=== PATIENT | female | born 1935 | race Caucasian/White ===

== ENCOUNTER 2017-04-21 22:24 | Inpatient (IN) | payer MEDICARE ==
[~2017-04-21] VITALS: Ht 157.5 cm; Wt 64.9 kg
[~2017-04-21 22:24] MED LIST: ADVAI250I INH; ALBU2.5I INH; ALEN70 PO; CALC600T34 PO; CART240C4 PO; FURO20 PO; LORA1TAB PO; METO50TA PO; OXYB5TAB PO; POTA10IN2 PO; PRIN10TA PO; TIOT18I INH; WARF5TAB PO
[2017-04-21 22:29] VITALS: BP 107/53; PULSE 70; RESP 20; O2SAT 96
[2017-04-21] MEDS ORDERED: MORPHINE SULFATE 8 MG/ML INJ ONE (22:32)
[2017-04-21] MEDS ORDERED: SODIUM CHLORIDE 0.9% FLUSH 10 ML FLUSH IVF PRN (22:45)
[2017-04-21] MEDS ORDERED: MORPHINE SULFATE 4 MG/ML INJ IV PUSH ONE (22:45)
--- NOTE | 2017-04-21 23:00 | PD ---
HPI . Altered level of consciousness Chief Complaint: Cardiac Complaint Time Seen by Provider: 22:37 Travel History International Travel<30 days: No Contact w/Intl Traveler<30days: No Traveled to known affect area: No History of Present Illness HPI This patient is brought in via [facility] with the chief complaint of altered level of consciousness. [facility] reports that they were called to the scene of a probable diabetic emergency. On their arrival, they found that the patient had a heart rate of 20 and a blood pressure of 60/30. They treated her with a dose of atropine without effect. They've been initiated transcutaneous pacing. Heart rate and blood pressure as well as mental status had improved. The patient's only complaint is discomfort associated with the transcutaneous pacing. PFSH Past Medical History Asthma: No Atrial Fibrillation: Yes Blood Disorders: No Anxiety: No Depression: No Heart Rhythm Problems: Yes (AFIB) Cancer: Yes (right kidney removed) Cardiovascular Problems: No High Cholesterol: No Chemotherapy: No Chest Pain: No Congestive Heart Failure: Yes COPD: Yes Diabetes: No Diminished Hearing: No Endocrine: No Genitourinary: No Hepatitis: No Hiatal Hernia: No Hypertension: Yes Immune Disorder: No Implanted Vascular Access Dvce: No Musculoskeletal: Yes (OSTEOPENIA) Neurologic: No Psychiatric: No Reproductive: No Respiratory: No Radiation Therapy: No Sleep Apnea: No Thyroid Disease: No ?: Not Menopausal: Yes Past Surgical History Abdominal Surgery: Yes (gallbladder removed) Cholecystectomy: Yes Genitourinary Surgery: Yes (right nephrectomy) Gynecologic Surgery: Yes (VAG HYSTRECTOMY) Pacemaker: No Other Surgery: Yes Social History Alcohol Use: No Tobacco Use: No Substance Use: No Allergies-Medications (Allergen,Severity, Reaction): Coded Allergies: penicillin G (Verified Allergy, Intermediate, hives, 04/21/17) Uncoded Allergies: METAL (Allergy, Severe, RASH , 01/16/11) GOLD, [place], SILVER OTHER METALS Reported Meds & Prescriptions Reported Meds & Active Scripts Active Reported Ventolin Hfa 18 GM Inh (Albuterol Sulfate) 90 Mcg/Act Aer 2 Puff INH Q6H PRN Anoro Ellipta Inh (Umeclidinium/Vilanterol) 62.5-25 Mcg/Act Aero 1 Puff INH DAILY Ditropan (Oxybutynin Chloride) 5 Mg Tab 5 Mg PO HS Atorvastatin (Atorvastatin Calcium) 20 Mg Tab 20 Mg PO HS Warfarin 2.5 Mg Tab 2.5 Mg PO , Warfarin 5 Mg Tab 5 Mg PO FRI, MON, WED, FRI Furosemide 20 Mg Tab 20 Mg PO DAILY Metformin (Metformin HCl) 500 Mg Tab 500 Mg PO DAILY With a meal Metoprolol Tartrate 50 Mg Tab 50 Mg PO BID Diltiazem ER 24 HR 180 Mg Michael Unknown Dose PO DAILY K-Tab (Potassium Chloride) 10 Meq Tab 10 Meq PO DAILY Mirtazapine 15 Mg Tab 15 Mg PO HS Memantine 10 Mg Tab 10 Mg PO DAILY Vitamin D (Cholecalciferol) 2,000 Unit Tab Review of Systems Except as stated in HPI: all other systems reviewed are Neg Musculoskeletal: Positive: Pain (pain associated with transcutaneous pacing) Physical Exam Narrative GENERAL: Patient is awake and alert and does not appear to be in any acute distress. SKIN: warm/dry. HEAD: Normocephalic. Atraumatic. EYES: Pupils equal and round. No scleral icterus. No injection or drainage. ENT: No nasal bleeding or discharge. Mucous membranes pink and moist. NECK: Trachea midline. Full range of motion without pain.. CARDIOVASCULAR: Paced rhythm. Systolic blood pressure is now about 100. Full and equal distal pulses. RESPIRATORY: No accessory muscle use. Clear to auscultation. Breath sounds equal bilaterally. GASTROINTESTINAL: Abdomen soft. Nontender. Bowel sounds present. Nondistended. MUSCULOSKELETAL: No obvious deformities. NEUROLOGICAL: Awake and alert. No obvious cranial nerve deficits. Motor grossly within normal limits. Normal speech. PSYCHIATRIC: Appropriate mood and affect; insight and judgment normal. Data Data Last Documented VS Vital Signs Date Time Temp Pulse Resp B/P (MAP) Pulse Ox O2 Delivery O2 Flow Rate FiO2 04/21/17 23:20 70 20 122/49 (73) 97 Nasal Cannula 3.00 Orders Orders Morphine Inj (Morphine Inj) (04/21/17 22:32) Basic Metabolic Panel (Bmp) (04/21/17 22:42) Ckmb (Isoenzyme) Profile (04/21/17 22:42) Complete Blood Count With Diff (04/21/17 22:42) Magnesium (Mg) (04/21/17 22:42) Prothrombin Time / Inr (Pt) (04/21/17 22:42) Act Partial Throm Time (Ptt) (04/21/17 22:42) Troponin I (04/21/17 22:42) Chest, Single Ap (04/21/17 22:42) Ecg Monitoring (04/21/17 22:42) Iv Access Insert/Monitor (04/21/17 22:42) Oximetry (04/21/17 22:42) Oxygen Administration (04/21/17 22:42) Morphine Inj (Morphine Inj) (04/21/17 22:45) Sodium Chloride 0.9% Flush (Ns Flush) (04/21/17 22:45) ^ Pacemaker (04/21/17 22:42) Sodium Polysty Sulfate Liq (Kayexalate L (04/21/17 23:45) Calcium Gluconate Inj (Calcium Gluconate (04/21/17 23:45) Insulin Human Regular Inj (Novolin R Inj (04/21/17 23:45) Dextrose 10% Inj (D10w Inj) (04/21/17 23:41) Sodium Bicarbonate 8.4% Inj (Sodium Bica (04/21/17 23:45) Morphine Inj (Morphine Inj) (04/22/17 00:00) Admit Order (Ed Use Only) (04/22/17 00:03) Labs Laboratory Tests Test 04/21/17 22:45 White Blood Count 12.9 TH/MM3 Red Blood Count 3.79 MIL/MM3 Hemoglobin 10.0 GM/DL Hematocrit 31.8 % Mean Corpuscular Volume 83.9 FL Mean Corpuscular Hemoglobin 26.3 PG Mean Corpuscular Hemoglobin Concent 31.3 % Red Cell Distribution Width 17.3 % Platelet Count 363 TH/MM3 Mean Platelet Volume 8.3 FL Neutrophils (%) (Auto) 78.0 % Lymphocytes (%) (Auto) 17.3 % Monocytes (%) (Auto) 3.1 % Eosinophils (%) (Auto) 1.1 % Basophils (%) (Auto) 0.5 % Neutrophils # (Auto) 10.1 TH/MM3 Lymphocytes # (Auto) 2.2 TH/MM3 Monocytes # (Auto) 0.4 TH/MM3 Eosinophils # (Auto) 0.1 TH/MM3 Basophils # (Auto) 0.1 TH/MM3 CBC Comment DIFF FINAL Differential Comment Prothrombin Time 31.5 SEC Prothromb Time International Ratio 2.7 RATIO Activated Partial Thromboplast Time 34.4 SEC Blood Urea Nitrogen 20 MG/DL Creatinine 1.63 MG/DL Random Glucose 241 MG/DL Calcium Level 8.9 MG/DL Magnesium Level 1.6 MG/DL Sodium Level 133 MEQ/L Potassium Level 5.7 MEQ/L Chloride Level 103 MEQ/L Carbon Dioxide Level 18.7 MEQ/L Anion Gap 11 MEQ/L Estimat Glomerular Filtration Rate 30 ML/MIN Total Creatine Kinase 20 U/L Troponin I LESS THAN 0.02 NG/ML MDM Medical Decision Making Medical Screen Exam Complete: Yes Emergency Medical Condition: Yes Medical Record Reviewed: Yes (medical history includes COPD, atrial fibrillation, hypertension, hyperlipidemia, diabetes.) Interpretation(s) EKG was not really interpretable. She is currently being paced with a transcutaneous pacemaker. Differential Diagnosis My differential diagnosis includes but is not limited to sick sinus syndrome, adverse reaction to medications Narrative Course This patient presented with symptoms that a bradycardia. Cardiology, Dr. Lopez, was immediately consulted. He recommends discontinuing her beta janusz and calcium channel janusz. The mandate retail service merchandiser, Dr. Scherer, was subsequently consulted. In the meantime, I have ordered morphine for her discomfort associated with pacing. A cardiac workup has been initiated. The patient is currently hemodynamically stable. CBC Diagram 04/21/17 22:45 BMP Diagram 04/21/17 22:45 Calcium Level 8.9, Magnesium Level 1.6 I have ordered IV insulin and dextrose, Kayexalate, sodium bicarbonate and calcium gluconate for her hyperkalemia. Troponin is less than 0.02. INR is 2.7. Critical Care Narrative Aggregate critical care time was 45 minutes. Time to perform other separately billable procedures was not included in the critical care time. My time did not include minutes spent treating any other patients simultaneously or on activities that did not directly contribute to the patient's treatment. The services I provided to this patient were to treat and/or prevent clinically significant deterioration due to symptomatic bradycardia I provided critical care services requiring my management, as noted below: Chart data review, documentation time, medication orders and management, vital sign assessments/reviewing monitor data, ordering and reviewing lab tests, ordering and interpreting/reviewing x-rays and diagnostic studies, care of the patient and discussion of the patient with the admitting physicians Diagnosis Primary Impression: Symptomatic bradycardia Additional Impression: Hyperkalemia Admitting Information Admitting Physician Requests: Admit Condition: Keila Tilley MD Apr 21, 2017 22:59
[2017-04-21 23:19] LABS: AUTOMATED NEUTROPHIL # 10.1 TH/MM3 (1.8-7.7); BASOPHIL # 0.1 TH/MM3 (0-0.2); BASOPHIL % 0.5 % (0.0-2.0); EOSINOPHIL # 0.1 TH/MM3 (0-0.4); EOSINOPHIL % 1.1 % (0.0-4.0); HEMATOCRIT 31.8 % (35.0-46.0); HEMO FLAGS DIFF FINAL; LYMPH % 17.3 % (9.0-44.0); LYMPHOCYTE # 2.2 TH/MM3 (1.0-4.8); MEAN CELL VOLUME 83.9 FL (80.0-100.0); MEAN CORPUSCULAR HEMOGLOBIN 26.3 PG (27.0-34.0); MEAN CORPUSCULAR HGB CONC 31.3 % (32.0-36.0); MONO % 3.1 % (0.0-8.0); PLATELET COUNT 363 TH/MM3 (150-450); RED BLOOD COUNT 3.79 MIL/MM3 (4.00-5.30); RED CELL DISTRIBUTION WIDTH 17.3 % (11.6-17.2); WHITE BLOOD COUNT 12.9 TH/MM3 (4.0-11.0)
[2017-04-21 23:20] VITALS: BP 122/49; PULSE 70; RESP 20; O2SAT 97
[2017-04-21 23:36] LABS: ANION GAP 11 MEQ/L (5-15); BICARBONATE 18.7 MEQ/L (21.0-32.0); BLOOD UREA NITROGEN 20 MG/DL (7-18); CHLORIDE 103 MEQ/L (98-107); GLOMERULAR FILTRATION RATE 30 ML/MIN (>89); MAGNESIUM 1.6 MG/DL (1.5-2.5); POTASSIUM 5.7 MEQ/L (3.5-5.1); SODIUM (NA) 133 MEQ/L (136-145)
--- NOTE | 2017-04-21 23:37 | RADRPT ---
EXAM DATE/TIME: 04/21/2017 23:02 [facility] COMPARISON: No previous studies available for comparison. INDICATIONS : Chest pain. MEDICAL HISTORY : Congestive heart failure. Hypertension Chronic obstructive pulmonary disease. SURGICAL HISTORY : None. ENCOUNTER: Initial ACUITY: 1 day PAIN SCORE: 10/10 LOCATION: Left chest FINDINGS: A single view of the chest demonstrates basilar and dependent atelectasis in the lungs. No effusion. No pneumothorax. Heart size enlarged. Atherosclerotic aorta. CONCLUSION: 1. Basilar and dependent atelectasis in the lungs. No effusion or pneumothorax. Lauro Krishna MD on April 21, 2017 at 23:35 Board Certified Radiologist. This report was verified electronically.
[2017-04-21 23:41] LABS: APTT (PATIENT) 34.4 SEC (24.3-30.1); CREATINE KINASE 20 U/L (26-192); INTERNATIONAL NORMALIZED RATIO 2.7 RATIO; PROTHROMBIN TIME - PATIENT 31.5 SEC (9.8-11.6)
[2017-04-21] MEDS ORDERED: DEXTROSE 10% IV STA (23:41)
[2017-04-21] MEDS ORDERED: INSULIN HUMAN REGULAR 1,000 UNITS/10 ML VIAL IV PUSH ONE (23:45)
[2017-04-21] MEDS ORDERED: SODIUM BICARBONATE 8.4% INJ 50 MEQ/50 ML SYR IV PUSH ONE (23:45)
[2017-04-21] MEDS ORDERED: SODIUM POLYSTYRENE SULFONATE SUSP 15 GM/60 ML CUP PO ONE (23:45)
[2017-04-21] MEDS ORDERED: CALCIUM GLUCONATE 10% 1 GM/10 ML VIAL IV PUSH ONE (23:45)
[2017-04-21] MEDS ORDERED: VITA20003 (23:48)
[2017-04-21] MEDS ORDERED: METF500T PO (23:48)
[2017-04-21] MEDS ORDERED: DILT0.05 PO (23:48)
[2017-04-21] MEDS ORDERED: METO50TA PO (23:48)
[2017-04-21] MEDS ORDERED: K-TA10TA PO (23:48)
[2017-04-21] MEDS ORDERED: WARF-23 PO (23:48)
[2017-04-21] MEDS ORDERED: FURO20TA PO (23:48)
[2017-04-21] MEDS ORDERED: MEMA1TAB2 PO (23:48)
[2017-04-21] MEDS ORDERED: MIRTA15 PO (23:48)
[2017-04-21] MEDS ORDERED: WARF-18 PO (23:51)
[2017-04-21] MEDS ORDERED: VENTAER INH (23:51)
[2017-04-21] MEDS ORDERED: OXYB5TAB10 PO (23:51)
[2017-04-21] MEDS ORDERED: UMEC1AER INH (23:51)
[2017-04-21] MEDS ORDERED: ATOR20TA15 PO (23:51)
[2017-04-22] VITALS (24 sets, daily range): BP systolic 110–170; BP diastolic 54–112; PULSE 50–87; RESP 16–26; TEMP 97.2–98.7; O2SAT 76–99
[2017-04-22] MEDS: MORPHINE SULFATE 4 MG/ML INJ IV PUSH ONE ×2 (00:13)
[2017-04-22] MEDS ORDERED: DOPamine INJ PREMIX 500 ML ONE (00:39)
[2017-04-22] MEDS ORDERED: TERBUTALINE INJ 1 MG/ML AMP SQ PRN (00:45)
[2017-04-22] MEDS ORDERED: SODIUM BICARBONATE 8.4% SOLN 50 MEQ/50 ML VIAL IV PUSH ONE (00:45)
[2017-04-22] MEDS ORDERED: DOPamine INJ PREMIX 500 ML IV PRN ×2 (00:45→06:15)
[2017-04-22] MEDS ORDERED: SODIUM CHLORIDE 0.9% FLUSH 10 ML FLUSH IV FLUSH PRN (01:15)
[2017-04-22] MEDS ORDERED: SENNOSIDES 8.6 MG TAB PO PRN (01:15)
[2017-04-22] MEDS ORDERED: CHLORHEXIDINE GLUCONATE 2 % 1 PACK (2 CLOTHS) TOP PRN (01:15)
[2017-04-22] MEDS ORDERED: ACETAMINOPHEN 325 MG TAB PO PRN (01:15)
[2017-04-22] MEDS ORDERED: ONDANSETRON HCL 4 MG/2 ML VIAL IV PUSH PRN (01:15)
[2017-04-22] MEDS ORDERED: RESP: ALBUTEROL 2.5 MG/3 ML NEB (PRN) INH (01:15)
[2017-04-22] MEDS ORDERED: BISACODYL 10 MG SUPP RECTAL PRN (01:15)
[2017-04-22] MEDS ORDERED: LACTULOSE SYRUP 20 GM/30 ML CUP PO PRN (01:15)
[2017-04-22] MEDS ORDERED: MAGNESIUM HYDROXIDE SUSP 30 ML CUP PO PRN (01:15)
[2017-04-22] MEDS ORDERED: MISCELLANEOUS NURSING INFORMATION XX SCH (01:15)
--- NOTE | 2017-04-22 01:23 | HHI.HP ---
HPI Service Critical Care Medicine Primary Care Physician Unknown Admission Diagnosis symptomatic bradycardia, hyperkalemia Diagnosis: (1) COPD (chronic obstructive pulmonary disease) Diagnosis: Secondary (2) Atrial fibrillation Diagnosis: Secondary (3) Coagulopathy Diagnosis: Secondary (4) Hyperlipemia Diagnosis: Secondary (5) Hypertension, benign Diagnosis: Secondary (6) Diabetes mellitus type 2, diet-controlled Diagnosis: Secondary (7) Hyperkalemia Diagnosis: Secondary (8) Symptomatic bradycardia Diagnosis: Principal (9) Type 2 diabetes mellitus Diagnosis: Secondary Travel History International Travel<30 Days: No Contact w/Intl Traveler <30 Da: No Traveled to Known Affected Are: No History of Present Illness 81-year-old female with past medical history of hypertension, hyperlipidemia, chronic diastolic heart failure, atrial fibrillation on chronic anticoagulation with warfarin, depression, dementia, diabetes, COPD (not requiring home oxygen) who presents to [facility] emergency department after her daughter returned home from work and found her with nausea , vomiting, clammy skin, lightheadedness, feeling weak and unable to ambulate. She had also experience some shortness of breath earlier today and had been using her inhaler. No chest pain or headache. [facility] was called and when they arrived her heart rate was in the 20s with blood pressure 60/20. She was given atropine without improvement and then transcutaneous pacing was initiated. After initiation of transcutaneous pacing her blood pressure immediately improved and has been 107/53-122/49. EKG with junctional rhythm. She was given Ativan 4 mg IV per E VAC to help her to tolerate transcutaneous pacing. She was given morphine 2 mg IV in the emergency department. Dr. Lowe discussed with Dr. Lopez cardiology who recommended admission by [facility] with cardiology consultation. Patient is on metoprolol 50 mg by mouth twice a day and Cardizem 180 mg by mouth daily which she took at 11 AM on 04/21. She reportedly has no prior history of bradycardia. ED workup included potassium of 5.7, bicarbonate 18.7, BUN 20 with creatinine of 1.63. Glucose is 241. She has a history of diabetes and is on metformin. Review of Systems Constitutional: DENIES: Fever Respiratory: DENIES: Cough Cardiovascular: DENIES: Chest pain Gastrointestinal: COMPLAINS OF: Nausea Musculoskeletal: DENIES: Neck pain Integumentary: DENIES: Rash Hematologic/lymphatic: DENIES: Bruising Neurologic: DENIES: Headache Psychiatric: COMPLAINS OF: Depression Past Family Social History Allergies: Coded Allergies: penicillin G (Verified Allergy, Intermediate, hives, 04/21/17) Uncoded Allergies: METAL (Allergy, Severe, RASH , 01/16/11) GOLD, [place], SILVER OTHER METALS Past Medical History Hypertension Hyperlipidemia Diabetes mellitus Atrial fibrillation on chronic anticoagulation with warfarin Chronic diastolic heart failure COPD Depression Past Surgical History 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 Cholecystectomy Left hip replacement Hysterectomy Recent MOHS surgery ~ 2 weeks ago for removal of skin cancer right lima Reported Medications Anoro Ellipta 1 puff inhaled daily Albuterol 2 puffs inhaled every 6 hours as needed for shortness of breath Warfarin 5 mg by mouth Friday/Friday/Friday/Friday Warfarin 2.5 mg Friday/ Atorvastatin 20 mg by mouth daily at bedtime Metoprolol 50 g by mouth twice a day Cardizem ER 180 mg by mouth daily Mirtazapine 15 mg by mouth daily Amantadine 10 mg by mouth daily Potassium chloride 10 mEq by mouth daily Lasix 20 mg by mouth daily Ditropan 5 mg by mouth daily at bedtime Vitamin D 2000 units by mouth daily Family History Denies family cardiac history Social History [id number] history of smoking.. Quit smoking at age 56 No alcohol use No illicit drug use is She has 6 children. Lives with her daughter who presented with her in the emergency department. She had another daughter who recently. She was previously raising a granddaughter but she lost custody to one of her daughters. Physical Exam Vital Signs Vital Signs Date Time Temp Pulse Resp B/P (MAP) Pulse Ox O2 Delivery O2 Flow Rate FiO2 04/22/17 00:49 50 116/58 04/22/17 00:32 50 18 110/54 (72) 98 Nasal Cannula 3.00 04/21/17 23:20 70 20 122/49 (73) 97 Nasal Cannula 3.00 04/21/17 22:47 97 Nasal Cannula 4.00 04/21/17 22:40 70 04/21/17 22:29 70 20 107/53 (71) 96 Physical Exam GENERAL: Well-nourished, well-developed patient who is laying in the ED gurney. SKIN: Warm and dry, adequately perfused. No diaphoresis. Healing incision right anterior lima from recent Mohs surgery, no drainage. HEAD: Atraumatic. Normocephalic. EYES: Pupils equal and round, 3 mm and reactive bilaterally. No scleral icterus. No injection or drainage. ENT: No nasal bleeding or discharge. Mucous membranes pink and moist. NECK: Trachea midline. No JVD. CARDIOVASCULAR: Transcutaneous pacing ongoing with 50mA , changed to demand pacing at backup rate 50. Patient's intrinsic rate was in the high 30s to low 40s. No murmurs rubs or gallops appreciated. RESPIRATORY: Breathing comfortably on nasal cannula. Rhonchi in left lung field. No wheezes Rales. GASTROINTESTINAL: Abdomen soft, non-tender, nondistended. Bowel sounds present. MUSCULOSKELETAL: Extremities without clubbing, cyanosis, or edema. No obvious deformities. NEUROLOGICAL: Awakens and answers questions but sometimes tangential and slightly slurred speech which daughter states occurred after she received morphine. No facial droop. Strength 5/5 in all extremities with no focal deficit. Laboratory Laboratory Tests Test 04/21/17 22:45 White Blood Count 12.9 Red Blood Count 3.79 Hemoglobin 10.0 Hematocrit 31.8 Mean Corpuscular Volume 83.9 Mean Corpuscular Hemoglobin 26.3 Mean Corpuscular Hemoglobin Concent 31.3 Red Cell Distribution Width 17.3 Platelet Count 363 Mean Platelet Volume 8.3 Neutrophils (%) (Auto) 78.0 Lymphocytes (%) (Auto) 17.3 Monocytes (%) (Auto) 3.1 Eosinophils (%) (Auto) 1.1 Basophils (%) (Auto) 0.5 Neutrophils # (Auto) 10.1 Lymphocytes # (Auto) 2.2 Monocytes # (Auto) 0.4 Eosinophils # (Auto) 0.1 Basophils # (Auto) 0.1 CBC Comment DIFF FINAL Differential Comment Prothrombin Time 31.5 Prothromb Time International Ratio 2.7 Activated Partial Thromboplast Time 34.4 Blood Urea Nitrogen 20 Creatinine 1.63 Random Glucose 241 Calcium Level 8.9 Magnesium Level 1.6 Sodium Level 133 Potassium Level 5.7 Chloride Level 103 Carbon Dioxide Level 18.7 Anion Gap 11 Estimat Glomerular Filtration Rate 30 Total Creatine Kinase 20 Troponin I LESS THAN 0.02 Result Diagram: 04/21/17224404/21/172244 Caprini VTE Risk Assessment Caprini VTE Risk Assessment: Mod/High Risk (score >= 2) VTE Pharm Contraindication: Coagulopathy,INR elevated Caprini Risk Assessment Model Point Value = 1 Point Value = 2 Point Value = 3 Point Value = 5 Age 41-60 Minor surgery BMI > 25 kg/m2 Swollen legs Varicose veins or History of unexplained or recurrent spontaneous Oral contraceptives or hormone replacement Sepsis (< 1 month) Serious lung disease, including pneumonia (< 1 month) Abnormal pulmonary function Acute myocardial infarction Congestive heart failure (< 1 month) History of inflammatory bowel disease Medical patient at bed rest Age 61-74 Arthroscopic surgery Major open surgery (> 45 min) Laparoscopic surgery (> 45 min) Malignancy Confined to bed (> 72 hours) Immobilizing plaster cast Central venous access Age >= 75 History of VTE Family history of VTE Factor V Leiden Prothrombin [id number] Lupus anticoagulant Anticardiolipin antibodies Elevated serum homocysteine Heparin-induced thrombocytopenia Other congenital or acquired thrombophilia Stroke (< 1 month) Elective arthroplasty Hip, pelvis, or leg fracture Acute spinal cord injury (< 1 month) Prophylaxis Regimen Total Risk Factor Score Risk Level Prophylaxis Regimen 0-1 Low Early ambulation 2 Moderate Order ONE of the following: *Sequential Compression Device (SCD) *Heparin 5000 units SQ BID 3-4 Higher Order ONE of the following medications: *Heparin 5000 units SQ TID *Enoxaparin/Lovenox 40 mg SQ daily (WT < 150 kg, CrCl > 30 mL/min) *Enoxaparin/Lovenox 30 mg SQ daily (WT < 150 kg, CrCl > 10-29 mL/min) *Enoxaparin/Lovenox 30 mg SQ BID (WT < 150 kg, CrCl > 30 mL/min) AND/OR *Sequential Compression Device (SCD) 5 or more Highest Order ONE of the following medications: *Heparin 5000 units SQ TID (Preferred with Epidurals) *Enoxaparin/Lovenox 40 mg SQ daily (WT < 150 kg, CrCl > 30 mL/min) *Enoxaparin/Lovenox 30 mg SQ daily (WT < 150 kg, CrCl > 10-29 mL/min) *Enoxaparin/Lovenox 30 mg SQ BID (WT < 150 kg, CrCl > 30 mL/min) AND *Sequential Compression Device (SCD) Assessment and Plan Problem List: (1) Type 2 diabetes mellitus ICD Code: E11.9 - Type 2 diabetes mellitus without complications Status: Chronic (2) Atrial fibrillation ICD Code: I48.91 - Atrial fibrillation Status: Chronic (3) COPD (chronic obstructive pulmonary disease) ICD Code: J44.9 - COPD (chronic obstructive pulmonary disease) Status: Chronic (4) Coagulopathy ICD Code: D68.9 - Coagulopathy Status: Chronic (5) Hyperlipemia ICD Code: E78.5 - Hyperlipemia Status: Chronic (6) Hypertension, benign ICD Code: I10 - Hypertension, benign Status: Chronic (7) Hyperkalemia ICD Code: E87.5 - Hyperkalemia Status: Acute (8) Symptomatic bradycardia ICD Code: R00.1 - Bradycardia, unspecified Status: Acute (9) Dementia ICD Code: F03.90 - Unspecified dementia without behavioral disturbance Status: Chronic (10) ALTON (acute kidney injury) ICD Code: N17.9 - Acute kidney failure, unspecified Status: Acute (11) Anemia ICD Code: D64.9 - Anemia, unspecified Status: Chronic (12) History of tobacco abuse ICD Code: Z87.891 - Personal history of nicotine dependence Status: Resolved Assessment and Plan NEURO: Dementia Continue memantine 10 mg by mouth daily Received Ativan 4 mg IV and morphine 2 mg IV in the emergency department. Is sedated with that and will need to avoid further sedatives, so will try to transition off transcutaneous pacing to minimize sedative need. RESP: COPD Former history of tobacco abuse DuoNeb every 6 hours. Albuterol every 2 hours as needed. CV: Cardiogenic shock secondary to bradycardia, resolved Symptomatic bradycardia History of atrial fibrillation on chronic anticoagulation Hypertension Hyperlipidemia Received atropine per [facility]. Was transcutaneous paced in the emergency department. She is getting sleepy with sedative medications and when they wear off will not tolerate transcutaneous pacing anymore. Intrinsic rate is 30s to 40s. Discussed this with her daughter. Started dopamine and she responded to 5 mcg/kg/min and was able to discontinue transcutaneous pacing. At this point will avoid transvenous pacer. Will hold metoprolol and Cardizem. If she develops A. fib RVR she may require permanent pacemaker placement to allow for AV krupa blockade, but will just need to monitor and see what happens. We'll consult cardiology, she is known to Dr. Lopez. Lasix 20 mg by mouth daily Continue statin daily Echo 11/16/14 - Ejection fraction 55-60%. Normal wall motion. No regional wall motion abnormality. GI: Nothing by mouth for now. Swallow eval in a.m if she is not needing any procedures. FEN/RENAL: Acute kidney injury Hyperkalemia Hyponatremia She was administered by bicarbonate 25 mEq IV in the ED. Will give an additional 25 mEq IV. Received Kayexalate 15 mg by mouth, calcium gluconate 1 g IV, insulin 10 units IV. We'll repeat potassium. Will check magnesium level Hold home potassium. ID: Leukocytosis Likely stress reaction secondary to recent surgery/bradycardia. We'll monitor for signs and symptoms of infection. She is afebrile. HEME: Chronic Anemia Chronic anti-coagulation with warfarin Monitor CBC. INR therapeutic at 2.7. Hold warfarin for now in the event that she needs pacemaker placement. Resume warfarin or initiate lovenox if INR <2, depending on plan for pacemaker placement/clinical course. ENDO: Diabetes mellitus with acute hyperglycemia Check TSH. . PROPH: She is chronically anticoagulated with warfarin for A fib and INR is therapeutic to prevent DVTs. Protonix 40 mg IV daily for stress ulcer prophylaxis ACCESS: She has a peripheral IV. She appears to be coming down on dopamine quickly. If she remains on dopamine will place central line however does not appear necessary at this time and would like to avoid unnecessary invasive procedure in the event that she may need PPM. Patient's daughter updated at bedside in detail. Discussed with Dr. Black in the morning. Critical care time 60 minutes exclusive of separately billable procedures. Problem Qualifiers (1) Atrial fibrillation: Qualified Codes: I48.0 - Paroxysmal atrial fibrillation Caroline Scherer MD Apr 22, 2017 01:23
[2017-04-22] MEDS: CHLORHEXIDINE GLUCONATE 2 % 1 PACK (2 CLOTHS) TOP SCH (04:00)
[2017-04-22] MEDS ORDERED: GLUCAGON 1 MG/ML VIAL OTHER PRN (06:15)
[2017-04-22] MEDS ORDERED: DEXTROSE 50% IN WATER 50 ML VIAL(D50) IV PRN (06:15)
[2017-04-22] MEDS: INSULIN ASPART SUPPLEMENTAL SCALE SQ SCH ×4 (07:00→21:00)
--- NOTE | 2017-04-22 07:24 | RADRPT ---
EXAM DATE/TIME: 04/22/2017 07:00 [facility] COMPARISON: CHEST SINGLE AP, April 21, 2017, 23:02. INDICATIONS : Pulmonary Disease. MEDICAL HISTORY : Chronic obstructive pulmonary disease. Congestive heart failure. Hypertension. SURGICAL HISTORY : None. ENCOUNTER: Initial ACUITY: 2 days PAIN SCORE: 0/10 LOCATION: Bilateral chest FINDINGS: Mild diffuse interstitial prominence with normal bibasilar airspace disease similar to prior exam. Ca rdiac silhouette is enlarged. Central pulmonary vascularity is minimally indistinct. Remainder of the exam is unchanged. CONCLUSION: 1. Cardiomegaly with slight positive fluid balance. 2. Stable trace bibasilar airspace disease, likely atelectasis. 3. No significant interval change. Alin Morin MD on April 22, 2017 at 7:22 Board Certified Radiologist. This report was verified electronically.
--- NOTE | 2017-04-22 08:32 | HHI.CCPN ---
Subjective Remarks/Hospital Course 81-year-old female with past medical history of hypertension, hyperlipidemia, chronic diastolic heart failure, atrial fibrillation on chronic anticoagulation with warfarin, depression, dementia, diabetes, COPD (not requiring home oxygen) who presents to [facility] emergency department after her daughter returned home from work and found her with nausea , vomiting, clammy skin, lightheadedness, feeling weak and unable to ambulate. She had also experience some shortness of breath earlier today and had been using her inhaler. No chest pain or headache. [facility] was called and when they arrived her heart rate was in the 20s with blood pressure 60/20. She was given atropine without improvement and then transcutaneous pacing was initiated. After initiation of transcutaneous pacing her blood pressure immediately improved and has been 107/53-122/49. She was given Ativan 4 mg IV per E VAC to help her to tolerate transcutaneous pacing. She was given morphine 2 mg IV in the emergency department. Dr. Lowe discussed with Dr. Lopez cardiology who recommended admission by [facility] with cardiology consultation. Patient is on metoprolol 50 mg by mouth twice a day and Cardizem 180 mg by mouth daily which she took at 11 AM on 04/21. She reportedly has no prior history of bradycardia. ED workup included potassium of 5.7, bicarbonate 18.7, BUN 20 with creatinine of 1.63. Glucose is 241. She has a history of diabetes and is on metformin. Subjective: 04/22: Dopamine was discontinued at 0615 this a.m., the patient remains with a heart rate in the 60s to 70s currently, normotensive. Seen by cardiology Dr. Lopez, continue to closely monitor, no interventions recommended at this time. The patient remains alert and oriented denies chest pain. The patient was noted to have hypomagnesemia magnesium will be replaced this morning. Objective Vital Signs Date Time Temp Pulse Resp B/P (MAP) Pulse Ox O2 Delivery O2 Flow Rate FiO2 04/22/17 06:00 97.2 71 17 147/60 (89) 90 04/22/17 03:30 Venturi Mask 6.00 Intake and Output 04/22/17 04/22/17 04/23/17 08:00 16:00 00:00 Intake Total 0 ml Output Total 350 ml Balance -350 ml Result Diagram: 9/11/17 2245 9/11/17 2245 Imaging Last Impressions Chest X-Ray 04/22/17 0000 Signed Impressions: Service Date/Time: Saturday, April 22, 2017 07:00 - CONCLUSION: 1. Cardiomegaly with slight positive fluid balance. 2. Stable trace bibasilar airspace disease, likely atelectasis. 3. No significant interval change. Alin Morin MD Objective Remarks GENERAL: Well-developed well-nourished female of appropriately stated age, pleasantly conversant in no apparent respiratory distress SKIN: Warm and dry. HEAD: Atraumatic. Normocephalic. EYES: Pupils equal and round. No scleral icterus. No injection or drainage. ENT: No nasal bleeding or discharge. Mucous membranes pink and moist. NECK: Trachea midline. No JVD. CARDIOVASCULAR: Normal rate, regular rhythm. Transcutaneous pacer in place. HR 60-70's RESPIRATORY: No accessory muscle use. Clear to auscultation. Breath sounds equal bilaterally. GASTROINTESTINAL: Abdomen soft, non-tender, nondistended. No guarding. MUSCULOSKELETAL: Extremities without clubbing, cyanosis, or edema. No obvious deformities. NEUROLOGICAL: Awake and alert. RASS 0. No gross focal/sensory deficits. Cranial nerves II-XII grossly intact. Follows commands in all 4 extremities. Motor strength 5/5 bilateral upper and lower extremities A/P Assessment and Plan NEURO: Dementia Insomnia Neurochecks per ICU protocol Tylenol 650 mg every 6 for pain Continue [id number] daily at bedtime patient's home med Continue [id number] /d RESP: COPD Former history of tobacco abuse 04/22-chest z-nnw-[id number], trace bibasilar airspace disease Contain O2 sat greater than 92%, patient currently on Ventimask at 35% wean to nasal cannula CV: Cardiogenic shock secondary to bradycardia, resolved Symptomatic bradycardia History of atrial fibrillation on chronic anticoagulation Hypertension Hyperlipidemia 04/21-patient status post treatment with atropine followed by transcutaneous pacing followed by dopamine infusion. Breathing has been weaned off since 04/22, heart rate 60 to 70s Normotensive. Will continue to monitor Maintain transcutaneous pacer placement Cardiology following-Dr. Lopez GI: Hyperlipidemia Begin heart healthy diet Continue atorvastatin Bowel regimen FEN/RENAL: Acute kidney injury Hyperkalemia Hypomagnesemia Hyponatremia Monitor and replete Electrolytes per ICU protocol. Continue monitor sodium Magnesium 2 g IV Continue patient's home med Lasix 20 mg/day ID: Leukocytosis WBC 12 ,continue to monitor trend HEME: INR 2.7-patient anticoagulated for atrial fibrillation Monitor INR, CBC ENDO: Diabetes mellitus with acute hyperglycemia F/U TSH. . PROPH: She is chronically anticoagulated with warfarin and INR is therapeutic to prevent DVTs. Apply SCDs ACCESS: Peripheral IVs providing adequate access at this time. Central line if indicated Dispo: Discussed with PHOSPHATIC FERTILIZER SUPERVISOR at bedside. Level 3 Physician Hanna Paredes MD Apr 22, 2017 08:32
[2017-04-22] MEDS: FUROSEMIDE 20 MG TAB PO SCH (08:58)
[2017-04-22] MEDS: PANTOPRAZOLE SODIUM 40 MG VIAL IV PUSH SCH (08:58)
[2017-04-22] MEDS: DOCUSATE SODIUM 50 MG/SENNA 8.6 MG TAB PO SCH ×2 (08:58→21:02)
[2017-04-22] MEDS: MEMANTINE HCL 10 MG TAB PO SCH (08:58)
[2017-04-22] MEDS: MAGNESIUM SULFATE 1 GM PREMIX 100 ML IV SCH ×2 (08:59→10:45)
[2017-04-22] MEDS: SODIUM CHLORIDE 0.9% FLUSH 10 ML FLUSH IV FLUSH SCH ×2 (08:59→21:00)
[2017-04-22] MEDS ORDERED: RESP: ALBUTEROL 2.5 MG/3 ML NEB (PRN) NEB (09:45)
[2017-04-22] MEDS: RESP: ALBUTEROL 2.5 MG/IPRATROPIUM 0.5 MG NEB (SCH) NEB ×3 (10:16→20:46)
--- NOTE | 2017-04-22 16:41 | ECHRPT ---
Indication: SHORTNESS OF BREATH CONCLUSIONS Normal left ventricular size and wall thickness. The left ventricular systolic function is normal wi th an estimated ejection fraction in the range of 60-65%. Left ventricular diastolic function parameters a re normal. No wall motiona abnormalities. The left atrial size is bvac-ld-byfxopkrka dilated. The right atrial size is ugzk-vk-eadfxctlzy dilated. Lyqrf-dm-azyz mitral valve regurgitation. Mild thickening of the aortic valve leaflets. There is mild tricuspid valve regurgitation. The estimated pulmonary arterial pressure is 42 mmHg. BP: 147 / 60 HR: 71 Rhythm: Sinus MEASUREMENTS (Male / Female) Normal Values Technical Quality:Good 2D ECHO LV Diastolic Diameter PLAX 3.5 cm 4.2 - 5.9 / 3.9 - 5.3 cm LV Systolic Diameter PLAX 2.6 cm IVS Diastolic Thickness 1.2 cm 0.6 - 1.0 / 0.6 - 0.9 cm LVPW Diastolic Thickness 1.2 cm 0.6 - 1.0 / 0.6 - 0.9 cm LV Relative Wall Thickness 0.7 RV Internal Dim ED PLAX 2.4 cm LVOT Diameter 1.9 cm LA Systolic Diameter LX 3.9 cm 3.0 - 4.0 / 2.7 - 3.8 cm LV Ejection Fraction MOD 4C 51.7 % LV Cardiac Index MOD 4C 619.5 cm/minm LV Ejection Fraction 4C AL 54.1 % LV Cardiac Index 4C AL 676.5 cm/minm M-MODE Aortic Root Diameter MM 2.4 cm LA Systolic Diameter MM 4.0 cm LA Ao Ratio MM 1.7 AV Cusp Separation MM 1.3 cm DOPPLER AV Peak Velocity 144.0 cm/s AV Peak Gradient 8.3 mmHg LVOT Peak Velocity 73.1 cm/s LVOT Peak Gradient 2.1 mmHg AV Area Cont Eq pk 1.4 cm MV Area PHT 3.9 cm LV E' Lateral Velocity 5.9 cm/s LV E' Septal Velocity 5.0 cm/s TR Peak Velocity 282.0 cm/s TR Peak Gradient 31.8 mmHg FINDINGS LEFT VENTRICLE Normal left ventricular size and wall thickness. The left ventricular systolic function is normal wi th an estimated ejection fraction in the range of 60-65%. Left ventricular diastolic function parameters a re normal. No wall motiona abnormalities. RIGHT VENTRICLE Normal right ventricular size and systolic function. LEFT ATRIUM The left atrial size is radr-fd-vfkpiydazg dilated. RIGHT ATRIUM The right atrial size is iexd-hx-olzcmxkayj dilated. ATRIAL SEPTUM Normal atrial septal thickness without atrial level shunting by limited color doppler interrogation. AORTA The aortic root and proximal ascending aorta are normal in size on limited imaging. MITRAL VALVE Veete-io-oxny mitral valve regurgitation. AORTIC VALVE Mild thickening of the aortic valve leaflets. TRICUSPID VALVE There is mild tricuspid valve regurgitation. The estimated pulmonary arterial pressure is 42 mmHg. PULMONARY VALVE The pulmonary valve is not well visualized. VESSELS The inferior vena cava is normal in size. PERICARDIUM No pericardial effusion. Toño Mejia MD (Electronically Signed) Final Date:22 April 2017 16:40
[2017-04-22] MEDS: OXYBUTYNIN CHLORIDE 5 MG TAB PO SCH (21:02)
[2017-04-22] MEDS: ATORVASTATIN 20 MG TAB PO SCH (21:02)
[2017-04-22] MEDS: MIRTAZAPINE 15 MG TAB PO SCH (21:02)
[2017-04-23] VITALS (14 sets, daily range): BP systolic 141–186; BP diastolic 62–96; PULSE 73–111; RESP 18–29; TEMP 98.2–98.7; O2SAT 92–99
[2017-04-23] MEDS: RESP: ALBUTEROL 2.5 MG/IPRATROPIUM 0.5 MG NEB (SCH) NEB ×4 (04:00→20:24)
[2017-04-23] MEDS: CHLORHEXIDINE GLUCONATE 2 % 1 PACK (2 CLOTHS) TOP SCH (04:00)
[2017-04-23 05:13] LABS: AUTOMATED NEUTROPHIL # 8.8 TH/MM3 (1.8-7.7); BASOPHIL % 0.3 % (0.0-2.0); EOSINOPHIL # 0.2 TH/MM3 (0-0.4); EOSINOPHIL % 2.2 % (0.0-4.0); HEMO FLAGS DIFF FINAL; LYMPH % 16.3 % (9.0-44.0); LYMPHOCYTE # 1.9 TH/MM3 (1.0-4.8); MEAN CELL VOLUME 81.4 FL (80.0-100.0); MEAN CORPUSCULAR HEMOGLOBIN 25.7 PG (27.0-34.0); MEAN CORPUSCULAR HGB CONC 31.6 % (32.0-36.0); MONO % 4.6 % (0.0-8.0); NEUT % 76.6 % (16.0-70.0); PLATELET COUNT 339 TH/MM3 (150-450); RED BLOOD COUNT 3.69 MIL/MM3 (4.00-5.30); RED CELL DISTRIBUTION WIDTH 16.9 % (11.6-17.2); WHITE BLOOD COUNT 11.4 TH/MM3 (4.0-11.0)
[2017-04-23 06:04] LABS: ALKALINE PHOSPHATASE 107 U/L (45-117); ALT (GPT) 28 U/L (10-53); ANION GAP 7 MEQ/L (5-15); AST (GOT) 22 U/L (15-37); BICARBONATE 27.5 MEQ/L (21.0-32.0); BLOOD UREA NITROGEN 20 MG/DL (7-18); CHLORIDE 103 MEQ/L (98-107); GLOMERULAR FILTRATION RATE 57 ML/MIN (>89); MAGNESIUM 1.9 MG/DL (1.5-2.5); POTASSIUM 4.5 MEQ/L (3.5-5.1); SODIUM (NA) 137 MEQ/L (136-145); TOTAL BILIRUBIN ADULT 0.3 MG/DL (0.2-1.0)
--- NOTE | 2017-04-23 06:24 | RADRPT ---
EXAM DATE/TIME: 04/23/2017 05:06 [place] COMPARISON: CHEST SINGLE AP, April 22, 2017, 7:00. INDICATIONS : Short of breath. MEDICAL HISTORY : Chronic obstructive pulmonary disease. Congestive heart failure. SURGICAL HISTORY : None. ENCOUNTER: Subsequent ACUITY: 1 week PAIN SCORE: 0/10 LOCATION: Bilateral chest FINDINGS: A single view of the chest demonstrates cardiomegaly. Mild basilar opacity most characteristic of ate lectasis. No significant effusion. No pneumothorax. CONCLUSION: 1. Mild basilar opacity similar to April 22. Cardiomegaly. No pneumothorax. Lauro Krishna MD on April 23, 2017 at 6:21 Board Certified Radiologist. This report was verified electronically.
[2017-04-23] MEDS: INSULIN ASPART SUPPLEMENTAL SCALE SQ SCH ×5 (06:40→21:00)
--- NOTE | 2017-04-23 07:51 | PD.CONS ---
HPI Service CV Consult Requested By Reason for Consult bradycardia Primary Care Physician Unknown History of Present Illness Here with hypertension, hyperlipidemia, chronic diastolic heart failure, atrial fibrillation on chronic anticoagulation with warfarin, diabetes, COPD. She was found at home by her daughter with nausea/vomiting, lightheadedness and diaphoresis. EMS was activated and when place on a heart monitor found her heart rate to be 20 beats per minute. She had taken her BB and CCB that morning. She was given atropine and transcutaneous pacing was initiated. Her heart rate eventually came up to normal rates. Review of Systems Consitutional: DENIES: Fatigue, Fever, Chills, Weight gain, Weight loss Eyes: DENIES: Amaurosis Fugax, Change in vision HEENT: DENIES: Lightheadedness, Change in hearing Respiratory: DENIES: See HPI, Cough, Snoring, Shortness of breath, Wheezing, Sputum production Cardiovascular: COMPLAINS OF: See HPI Gastrointestinal: DENIES: Nausea, Vomiting, Change in bowel habits, Reflux, Bloody stools, Melena Genitourinary: DENIES: Urinary incontinence, Difficulty voiding Integumentary: DENIES: Rash Neurologic: DENIES: Tingling or numbness, Memory problems, Poor Balance, Stroke symptoms Musculoskeletal: DENIES: Joint pain, Muscle pain, Limited range of motion, Back pain Psychiatric: DENIES: Anxiety, Depression, Sleep disturbances Hematologic: DENIES: Bruising tendencies, Bleeding tendencies Endocrine: DENIES: Weight gain, Weight loss, Thyroid disease Past Family Social History Allergies: Coded Allergies: penicillin G (Verified Allergy, Intermediate, hives, 04/21/17) Uncoded Allergies: METAL (Allergy, Severe, RASH , 01/16/11) GOLD, [place], SILVER OTHER METALS Past Medical History see HPI dementia depression Past Surgical History 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 Cholecystectomy Left hip replacement Hysterectomy Recent MOHS surgery ~ 2 weeks ago for removal of skin cancer right lima Reported Medications Reported Meds & Active Scripts Active Reported Ventolin Hfa 18 GM Inh (Albuterol Sulfate) 90 Mcg/Act Aer 2 Puff INH Q6H PRN Anoro Ellipta Inh (Umeclidinium/Vilanterol) 62.5-25 Mcg/Act Aero 1 Puff INH DAILY Ditropan (Oxybutynin Chloride) 5 Mg Tab 5 Mg PO HS Atorvastatin (Atorvastatin Calcium) 20 Mg Tab 20 Mg PO HS Warfarin 2.5 Mg Tab 2.5 Mg PO , Warfarin 5 Mg Tab 5 Mg PO SUN, MON, WED, FRI Furosemide 20 Mg Tab 20 Mg PO DAILY Metformin (Metformin HCl) 500 Mg Tab 500 Mg PO DAILY With a meal Metoprolol Tartrate 50 Mg Tab 50 Mg PO BID Diltiazem ER 24 HR 180 Mg Michael Unknown Dose PO DAILY K-Tab (Potassium Chloride) 10 Meq Tab 10 Meq PO DAILY Mirtazapine 15 Mg Tab 15 Mg PO HS Memantine 10 Mg Tab 10 Mg PO DAILY Vitamin D (Cholecalciferol) 2,000 Unit Tab Active Ordered Medications Current Medications Medications (Trade) Dose Ordered Sig/Annalee Route Start Time Stop Time Status Last Admin (Brethine Inj) 1 mg UNSCH PRN SQ 04/22/17 00:45 (NS Flush) 2 ml UNSCH PRN IV FLUSH 04/22/17 01:15 (NS Flush) 2 ml BID IV FLUSH 04/22/17 09:00 04/22/17 08:59 (Tylenol) 650 mg Q6H PRN PO 04/22/17 01:15 (Protonix Inj) 40 mg DAILY IV PUSH 04/22/17 09:00 04/22/17 08:58 (Zofran Inj) 4 mg Q6H PRN IV PUSH 04/22/17 01:15 (Albuterol Neb) 2.5 mg Q2HR NEB PRN INH 04/22/17 01:15 Miscellaneous Information 1 Q361D XX 04/22/17 01:15 04/22/17 01:15 (Chlorhexidine 2% Cloth) 3 pack Taper DAILY@04 TOP 04/22/17 04:00 04/18/18 03:59 04/23/17 04:00 (Chlorhexidine 2% Cloth) 3 pack UNSCH PRN TOP 04/22/17 01:15 (Daisy-Colace) 1 tab BID PO 04/22/17 09:00 04/22/17 21:02 (Milk Of Magnesia Liq) 30 ml Q12H PRN PO 04/22/17 01:15 (Senokot) 17.2 mg Q12H PRN PO 04/22/17 01:15 (Dulcolax Supp) 10 mg DAILY PRN RECTAL 04/22/17 01:15 (Lactulose Liq) 30 ml DAILY PRN PO 04/22/17 01:15 (Lipitor) 20 mg HS PO 04/22/17 21:00 04/22/17 21:02 (Lasix) 20 mg DAILY PO 04/22/17 09:00 04/22/17 08:58 (Namenda) 10 mg DAILY PO 04/22/17 09:00 04/22/17 08:58 (Remeron) 15 mg HS PO 04/22/17 21:00 04/22/17 21:02 (Ditropan) 5 mg HS PO 04/22/17 21:00 04/22/17 21:02 Dopamine HCl/ Dextrose 500 ml @ 12 mls/hr TITRATE PRN IV 04/22/17 06:15 (D50w (Vial) Inj) 50 ml UNSCH PRN IV 04/22/17 06:15 (Glucagon Inj) 1 mg UNSCH PRN OTHER 04/22/17 06:15 (NovoLOG SUPPLEMENTAL SCALE) 1 ACHS SLIDING SCALE SQ 04/22/17 07:00 (Duoneb Neb) 1 ampule Q6HR NEB NEB 04/22/17 10:00 04/22/17 20:46 (Albuterol Neb) 2.5 mg Q2HR NEB PRN NEB 04/22/17 09:45 Family History noncontributory Social History 83 PYH smoking.. Quit age 56 No alcohol use No illicit drug use Physical Exam Vital Signs Vital Signs Date Time Temp Pulse Resp B/P (MAP) Pulse Ox O2 Delivery O2 Flow Rate FiO2 04/23/17 04:00 98.3 73 21 171/70 (103) 99 04/23/17 00:00 98.2 74 18 141/63 (89) 96 04/22/17 20:46 76 Nasal Cannula 3.00 04/22/17 20:00 98.0 72 17 121/58 (79) 98 04/22/17 18:00 131/61 (84) 04/22/17 18:00 71 04/22/17 17:01 77 26 129/108 (115) 97 04/22/17 16:00 61 04/22/17 16:00 98.3 61 18 140/63 (88) 96 04/22/17 15:00 70 23 143/88 (106) 96 04/22/17 14:00 67 24 146/112 (123) 97 04/22/17 14:00 67 04/22/17 13:00 62 16 146/61 (89) 88 04/22/17 12:00 98.4 66 16 120/58 (78) 94 04/22/17 12:00 66 04/22/17 11:00 68 22 133/63 (86) 96 04/22/17 11:00 68 04/22/17 10:00 61 18 131/63 (85) 95 04/22/17 10:00 61 04/22/17 09:45 62 18 136/60 (85) 98 04/22/17 09:18 94 Nasal Cannula 3.00 04/22/17 09:00 63 23 148/67 (94) 99 04/22/17 08:00 98.0 65 18 124/59 (80) 96 04/22/17 08:00 65 Physical Exam GENERAL: Well-nourished, well-developed patient in no apparent distress. NECK: No JVD. No carotid bruit. CARDIOVASCULAR: IR IR S1/S2 no murmur, rub, or gallop. RESPIRATORY: No accessory muscle use. Clear to auscultation. Breath sounds equal bilaterally. GASTROINTESTINAL: Abdomen soft, non-tender, nondistended. MUSCULOSKELETAL: Extremities without clubbing, cyanosis, or edema. Laboratory Laboratory Tests Test 04/22/17 11:19 04/22/17 13:18 04/23/17 04:42 Potassium Level 4.5 4.5 Troponin I LESS THAN 0.02 Thyroid Stimulating Hormone 3rd Gen 1.410 Magnesium Level 2.4 1.9 White Blood Count 11.4 Red Blood Count 3.69 Hemoglobin 9.5 Hematocrit 30.0 Mean Corpuscular Volume 81.4 Mean Corpuscular Hemoglobin 25.7 Mean Corpuscular Hemoglobin Concent 31.6 Red Cell Distribution Width 16.9 Platelet Count 339 Mean Platelet Volume 7.7 Neutrophils (%) (Auto) 76.6 Lymphocytes (%) (Auto) 16.3 Monocytes (%) (Auto) 4.6 Eosinophils (%) (Auto) 2.2 Basophils (%) (Auto) 0.3 Neutrophils # (Auto) 8.8 Lymphocytes # (Auto) 1.9 Monocytes # (Auto) 0.5 Eosinophils # (Auto) 0.2 Basophils # (Auto) 0.0 CBC Comment DIFF FINAL Differential Comment Blood Urea Nitrogen 20 Creatinine 0.95 Random Glucose 130 Total Protein 7.4 Albumin 2.7 Calcium Level 8.4 Phosphorus Level 3.3 Alkaline Phosphatase 107 Aspartate Amino Transf (AST/SGOT) 22 Alanine Aminotransferase (ALT/SGPT) 28 Total Bilirubin 0.3 Sodium Level 137 Chloride Level 103 Carbon Dioxide Level 27.5 Anion Gap 7 Estimat Glomerular Filtration Rate 57 Result Diagram: 04/23/1744104/23/17441 Assessment and Plan Problem List: (1) Hyperlipemia ICD Codes: E78.5 - Hyperlipemia Status: Chronic (2) Hypertension, benign ICD Codes: I10 - Hypertension, benign Status: Chronic (3) Atrial fibrillation ICD Codes: I48.91 - Atrial fibrillation Status: Chronic Assessment and Plan a-fib - rate controlled presently. avoid BB/CCB due to profound bradycardia, consider outpatient event monitor. If she has RVR we may need to consider PPM HTN start lisinopril 10 mg daily Problem Qualifiers (1) Atrial fibrillation: Qualified Codes: I48.0 - Paroxysmal atrial fibrillation Varun Kenyon Apr 23, 2017 07:50
--- NOTE | 2017-04-23 08:05 | MB ---
cc: NEGRA ASHLEY MD DATE OF CONSULTATION 04/22/2017 HISTORY The patient is an 81-year-old woman who has been treated for atrial fibrillation and congestive failure. She was playing cards yesterday. She became diaphoretic and very weak. [facility] was summoned and found her to have a pulse rate in the 20s with blood pressure 60/20. Transcutaneous pacing was initiated as well as a short course of dopamine. This morning her blood pressure is well maintained at 140/80 with a pulse rate of approximately 60 in atrial fibrillation. She had been taking Cardizem at a dose of 180 mg daily as well as metoprolol 50 mg twice daily to control her heart rate. She currently resting comfortably. No chest pain or shortness of breath has been present. Troponins were unremarkable. She does have some mild renal dysfunction and on admission her potassium was 5.7 and this has since been corrected as well. ALLERGIES None. PHYSICAL EXAMINATION GENERAL: On physical exam she is awake, alert in no distress. VITAL SIGNS: Her blood pressure is 140/80, pulse is approximately 60. NECK: There is no neck vein distension. LUNGS: Clear. CARDIOVASCULAR: Exam reveals an irregular rate and rhythm. There is no significant murmur noted. No gallop is present. ABDOMEN: Soft without tenderness, organomegaly. EXTREMITIES: Reveal no edema. ASSESSMENT The patient has had significant bradycardia which is multifactorial but likely due to some underlying AV krupa disease aggravated by both her medical regimen and mild hyperkalemia. We will continue watching for today off of her metoprolol and diltiazem. It is likely that we will have to consider restarting one or both of those medications if her heart rate speeds up after holding her medications. For the time being we will leave her transcutaneous pacer in place on standby mode we do not anticipate requiring it. MD GABE Donato/KK /7:36 AM /7:54 AM
[2017-04-23] MEDS: FUROSEMIDE 20 MG TAB PO SCH (09:05)
[2017-04-23] MEDS: DOCUSATE SODIUM 50 MG/SENNA 8.6 MG TAB PO SCH ×2 (09:05→21:01)
[2017-04-23] MEDS: MEMANTINE HCL 10 MG TAB PO SCH (09:06)
[2017-04-23] MEDS: LISINOPRIL 10 MG TAB PO SCH (09:06)
[2017-04-23] MEDS: PANTOPRAZOLE SODIUM 40 MG VIAL IV PUSH SCH (09:07)
[2017-04-23] MEDS: SODIUM CHLORIDE 0.9% FLUSH 10 ML FLUSH IV FLUSH SCH ×2 (09:07→21:01)
--- NOTE | 2017-04-23 17:24 | HHI.CCPN ---
Subjective Remarks/Hospital Course 81-year-old female with past medical history of hypertension, hyperlipidemia, chronic diastolic heart failure, atrial fibrillation on chronic anticoagulation with warfarin, depression, dementia, diabetes, COPD (not requiring home oxygen) who presents to [facility] emergency department after her daughter returned home from work and found her with nausea , vomiting, clammy skin, lightheadedness, feeling weak and unable to ambulate. She had also experience some shortness of breath earlier today and had been using her inhaler. No chest pain or headache. [facility] was called and when they arrived her heart rate was in the 20s with blood pressure 60/20. She was given atropine without improvement and then transcutaneous pacing was initiated. After initiation of transcutaneous pacing her blood pressure immediately improved and has been 107/53-122/49. She was given Ativan 4 mg IV per [facility] to help her to tolerate transcutaneous pacing. She was given morphine 2 mg IV in the emergency department. Dr. Lowe discussed with Dr. Lopez cardiology who recommended admission by [facility] with cardiology consultation. Patient is on metoprolol 50 mg by mouth twice a day and Cardizem 180 mg by mouth daily which she took at 11 AM on 04/21. She reportedly has no prior history of bradycardia. ED workup included potassium of 5.7, bicarbonate 18.7, BUN 20 with creatinine of 1.63. Glucose is 241. She has a history of diabetes and is on metformin. Subjective: 04/22: Dopamine was discontinued at 0615 this a.m., the patient remains with a heart rate in the 60s to 70s currently, normotensive. Seen by cardiology Dr. Lopez, continue to closely monitor, no interventions recommended at this time. The patient remains alert and oriented denies chest pain. The patient was noted to have hypomagnesemia magnesium will be replaced this morning. 04/23: HR increasing throughout the day today, now in the low 100s. patient without complaints and feels good. ROS negative. Objective Vital Signs Date Time Temp Pulse Resp B/P (MAP) Pulse Ox O2 Delivery O2 Flow Rate FiO2 04/23/17 16:00 98.7 100 25 149/67 (94) 95 04/23/17 07:56 Nasal Cannula 3.00 Intake and Output 04/23/17 04/23/17 04/24/17 08:00 16:00 00:00 Intake Total 480 ml Output Total 250 ml 550 ml Balance 230 ml -550 ml Result Diagram: 04/23/17 0442 04/23/17 0442 Imaging Last Impressions Chest X-Ray 04/22/17 0000 Signed Impressions: Service Date/Time: Saturday, April 22, 2017 07:00 - CONCLUSION: 1. Cardiomegaly with slight positive fluid balance. 2. Stable trace bibasilar airspace disease, likely atelectasis. 3. No significant interval change. Alin Morin MD Objective Remarks GENERAL: elderly female lying in bed, no acute distress. SKIN: Warm and dry, adequately perfused. No diaphoresis. Healing incision right anterior lima from recent Mohs surgery, no drainage. HEAD: Atraumatic. Normocephalic. EYES: Pupils equal and round, 3 mm and reactive bilaterally. No scleral icterus. No injection or drainage. ENT: No nasal bleeding or discharge. Mucous membranes pink and moist. NECK: Trachea midline. No JVD. CARDIOVASCULAR: tachycardic rate, irregularly irregular rhythm. afib by tele. HR 120 on my eval, varies 100 - 120 during my exam. not paced. RESPIRATORY: Breathing comfortably on nasal cannula. GASTROINTESTINAL: Abdomen soft, non-tender, nondistended. MUSCULOSKELETAL: Extremities without clubbing, cyanosis, or edema. No obvious deformities. NEUROLOGICAL: RASS 0. CAM -. follows commands. A/P Problem List: (1) Type 2 diabetes mellitus ICD Code: E11.9 - Type 2 diabetes mellitus without complications Status: Chronic (2) Atrial fibrillation ICD Code: I48.91 - Atrial fibrillation Status: Chronic (3) COPD (chronic obstructive pulmonary disease) ICD Code: J44.9 - COPD (chronic obstructive pulmonary disease) Status: Chronic (4) Coagulopathy ICD Code: D68.9 - Coagulopathy Status: Chronic (5) Hyperlipemia ICD Code: E78.5 - Hyperlipemia Status: Chronic (6) Hypertension, benign ICD Code: I10 - Hypertension, benign Status: Chronic (7) Hyperkalemia ICD Code: E87.5 - Hyperkalemia Status: Acute (8) Symptomatic bradycardia ICD Code: R00.1 - Bradycardia, unspecified Status: Acute (9) Dementia ICD Code: F03.90 - Unspecified dementia without behavioral disturbance Status: Chronic (10) ALTON (acute kidney injury) ICD Code: N17.9 - Acute kidney failure, unspecified Status: Acute (11) Anemia ICD Code: D64.9 - Anemia, unspecified Status: Chronic (12) History of tobacco abuse ICD Code: Z87.891 - Personal history of nicotine dependence Status: Resolved Assessment and Plan Assessment: 81yM with symptomatic bradycardia. This could be due to over- medication or inadvertent medication overdose vs. tachy-marshal syndrome. Appreciate cardiology recommendations. At this point, we will discontinue her back-up transcutaneous pacer. We will re-introduce a very small dose of home metoprolol, start with 12.5 mg po q12h. If she remains stable tonight, could transfer to [facility] in the AM. NEURO: Dementia Continue memantine 10 mg by mouth daily RESP: COPD Former history of tobacco abuse DuoNeb every 6 hours. Albuterol every 2 hours as needed. CV: Cardiogenic shock secondary to bradycardia, resolved Symptomatic bradycardia- resolved. History of atrial fibrillation on chronic anticoagulation Hypertension Hyperlipidemia Received atropine per [facility]. Was transcutaneous paced in the emergency department. restart metoprolol 12.5mg po q12h. continue holding diltiazem. Lasix 20 mg by mouth daily Continue statin daily Echo 11/16/14 - Ejection fraction 55-60%. Normal wall motion. No regional wall motion abnormality. appreciate Dr. Lopez input. GI: heart healthy diet as tolerated. FEN/RENAL: Acute kidney injury- resolved. Hyperkalemia Hyponatremia ICU electrolyte protocol ID: Leukocytosis- resolved. Likely stress reaction secondary to recent surgery/bradycardia. We'll monitor for signs and symptoms of infection. She is afebrile. HEME: Chronic Anemia Chronic anti-coagulation with warfarin Monitor CBC. INR therapeutic at 2.7. Hold warfarin for now in the event that she needs pacemaker placement. Resume warfarin or initiate lovenox if INR <2, depending on plan for pacemaker placement/clinical course. ENDO: Diabetes mellitus with acute hyperglycemia Check TSH. . PROPH: She is chronically anticoagulated with warfarin for A fib and INR is therapeutic to prevent DVTs. Protonix 40 mg IV daily for stress ulcer prophylaxis ACCESS: She has a peripheral IV. Patient's daughter updated at bedside in detail. Problem Qualifiers (1) Atrial fibrillation: Qualified Codes: I48.0 - Paroxysmal atrial fibrillation Víctor Prater MD Apr 23, 2017 17:23
[2017-04-23] MEDS ORDERED: PILL SPLITTER OTHER PRN (17:30)
[2017-04-23] MEDS: METOPROLOL TARTRATE 25 MG TAB PO SCH ×2 (17:34→21:00)
[2017-04-23] MEDS: OXYBUTYNIN CHLORIDE 5 MG TAB PO SCH (21:00)
[2017-04-23] MEDS: MIRTAZAPINE 15 MG TAB PO SCH (21:01)
[2017-04-23] MEDS: ATORVASTATIN 20 MG TAB PO SCH (21:01)
[2017-04-24] VITALS (17 sets, daily range): BP systolic 124–190; BP diastolic 56–104; PULSE 88–110; RESP 16–28; TEMP 97.9–98.9; O2SAT 92–98
[2017-04-24] MEDS: RESP: ALBUTEROL 2.5 MG/IPRATROPIUM 0.5 MG NEB (SCH) NEB ×3 (03:44→20:19)
[2017-04-24] MEDS: CHLORHEXIDINE GLUCONATE 2 % 1 PACK (2 CLOTHS) TOP SCH (04:00)
--- NOTE | 2017-04-24 07:32 | PD.CARD.PN ---
Subjective Subjective Remarks Sleeping. No distress Objective Vital Signs / I&O Vital Signs Date Time Temp Pulse Resp B/P (MAP) Pulse Ox O2 Delivery O2 Flow Rate FiO2 04/24/17 04:00 98.0 90 23 124/59 (80) 96 04/24/17 03:44 96 Nasal Cannula 3.00 04/24/17 00:00 98.2 91 18 135/66 (89) 98 04/23/17 20:24 92 21 04/23/17 20:00 98.4 93 29 153/96 (115) 98 04/23/17 18:00 102 04/23/17 16:00 98.7 100 25 149/67 (94) 95 04/23/17 16:00 100 04/23/17 14:00 89 19 180/77 (111) 98 04/23/17 14:00 89 04/23/17 13:00 85 20 154/68 (96) 96 04/23/17 12:00 93 04/23/17 12:00 98.6 93 24 141/68 (92) 95 04/23/17 11:00 103 26 153/69 (97) 97 04/23/17 10:00 88 27 147/62 (90) 96 04/23/17 10:00 88 04/23/17 09:01 111 23 143/62 (89) 95 04/23/17 08:00 98.4 85 22 186/78 (114) 98 04/23/17 08:00 85 04/23/17 07:56 97 Nasal Cannula 3.00 I/O 04/23/17 04/23/17 04/23/17 04/24/17 04/24/17 04/24/17 07:00 15:00 23:00 07:00 15:00 23:00 Intake Total 480 ml 720 ml 240 ml Output Total 1350 ml 100 ml Balance 480 ml -1350 ml 620 ml 240 ml Intake Oral 480 ml 720 ml 240 ml IV Total 0 ml 0 ml Output Urine Total 1350 ml 100 ml # Voids 3 4 # Bowel Movements 0 1 0 Assessment and Plan Problem List: (1) Hyperlipemia ICD Codes: E78.5 - Hyperlipemia Status: Chronic (2) Hypertension, benign ICD Codes: I10 - Hypertension, benign Status: Chronic (3) Atrial fibrillation ICD Codes: I48.91 - Atrial fibrillation Status: Chronic Plan: HR well controlled. OK to move to tele floor. Would observe in hospital for another 24 hours Problem Qualifiers (1) Atrial fibrillation: Qualified Codes: I48.0 - Paroxysmal atrial fibrillation Zack Lopez MD Apr 24, 2017 07:32
[2017-04-24] MEDS: INSULIN ASPART SUPPLEMENTAL SCALE SQ SCH ×4 (08:00→21:12)
[2017-04-24] MEDS: DOCUSATE SODIUM 50 MG/SENNA 8.6 MG TAB PO SCH ×2 (08:44→21:00)
[2017-04-24] MEDS: FUROSEMIDE 20 MG TAB PO SCH (08:44)
[2017-04-24] MEDS: LISINOPRIL 10 MG TAB PO SCH (08:45)
[2017-04-24] MEDS: METOPROLOL TARTRATE 25 MG TAB PO SCH ×2 (08:45→21:10)
[2017-04-24] MEDS: MEMANTINE HCL 10 MG TAB PO SCH (08:45)
[2017-04-24] MEDS: PANTOPRAZOLE SODIUM 40 MG VIAL IV PUSH SCH (08:45)
[2017-04-24] MEDS: SODIUM CHLORIDE 0.9% FLUSH 10 ML FLUSH IV FLUSH SCH ×2 (08:46→21:11)
--- NOTE | 2017-04-24 20:33 | HHI.PR ---
Subjective Remarks Patient herself denies any nausea vomiting or any lightheadedness Objective Vital Signs Date Time Temp Pulse Resp B/P (MAP) Pulse Ox O2 Delivery O2 Flow Rate FiO2 04/24/17 20:21 96 21 04/24/17 16:00 98.3 93 16 146/67 (93) 96 04/24/17 14:00 97.9 110 18 152/69 (96) 95 04/24/17 13:00 101 25 137/96 (110) 97 04/24/17 12:00 92 22 125/62 (83) 96 04/24/17 12:00 92 04/24/17 11:00 88 17 125/60 (81) 95 04/24/17 10:01 90 25 159/56 (90) 96 04/24/17 10:00 91 04/24/17 09:25 97 Nasal Cannula 3.00 04/24/17 09:01 99 23 190/79 (116) 97 04/24/17 08:00 96 04/24/17 08:00 96 28 146/104 (118) 97 04/24/17 07:00 89 17 132/62 (85) 97 04/24/17 04:00 98.0 90 23 124/59 (80) 96 04/24/17 03:44 96 Nasal Cannula 3.00 04/24/17 00:00 98.2 91 18 135/66 (89) 98 I/O 04/23/17 04/23/17 04/23/17 04/24/17 04/24/17 04/24/17 07:00 15:00 23:00 07:00 15:00 23:00 Intake Total 480 ml 720 ml 240 ml Output Total 1350 ml 100 ml 250 ml Balance 480 ml -1350 ml 620 ml 240 ml -250 ml Intake Oral 480 ml 720 ml 240 ml IV Total 0 ml 0 ml Output Urine Total 1350 ml 100 ml 250 ml # Voids 3 4 # Bowel Movements 0 1 0 1 Result Diagram: 04/23/1744104/23/17441 Objective Remarks Cardio vascular: Regular rate rhythm, no murmurs Unlabored breathing, clear to auscultation bilaterally No acute distress, awake alert and oriented pleasant mood A/P Assessment and Plan Assessment: 81yM with symptomatic bradycardia - significantly improved. CV: Cardiogenic shock secondary to bradycardia, resolved Symptomatic bradycardia- resolved. History of atrial fibrillation on chronic anticoagulation Hypertension Hyperlipidemia tsh wnl. Lasix 20 mg by mouth daily Continue statin daily Echo 11/16/14 - Ejection fraction 55-60%. Normal wall motion. No regional wall motion abnormality. appreciate Dr. Lopez input. on lopressor 12.5 mg q8hrs NEURO: Dementia Continue memantine 10 mg by mouth daily RESP: COPD Former history of tobacco abuse DuoNeb every 6 hours. Albuterol every 2 hours as needed. GI: heart healthy diet as tolerated. FEN/RENAL: Acute kidney injury- resolved. Hyperkalemia Hyponatremia ICU electrolyte protocol Chronic Anemia Chronic anti-coagulation with warfarin Monitor CBC. INR therapeutic at 2.7. Hold warfarin for now in the event that she needs pacemaker placement. Resume warfarin or initiate lovenox if INR <2, depending on plan for pacemaker placement/clinical course. Diabetes mellitus with acute hyperglycemia PROPH: She is chronically anticoagulated with warfarin for A fib and INR is therapeutic to prevent DVTs. Protonix 40 mg IV daily for stress ulcer prophylaxis Kasi Camara MD Apr 24, 2017 20:33
[2017-04-24] MEDS: MIRTAZAPINE 15 MG TAB PO SCH (21:09)
[2017-04-24] MEDS: ATORVASTATIN 20 MG TAB PO SCH (21:09)
[2017-04-24] MEDS: OXYBUTYNIN CHLORIDE 5 MG TAB PO SCH (21:10)
[2017-04-25] VITALS (7 sets, daily range): BP systolic 135–159; BP diastolic 55–88; PULSE 89–100; RESP 18; TEMP 97.7–98.4; O2SAT 92–96
[2017-04-25] MEDS: CHLORHEXIDINE GLUCONATE 2 % 1 PACK (2 CLOTHS) TOP SCH (03:46)
[2017-04-25] MEDS: RESP: ALBUTEROL 2.5 MG/IPRATROPIUM 0.5 MG NEB (SCH) NEB ×4 (04:51→19:51)
[2017-04-25] MEDS: INSULIN ASPART SUPPLEMENTAL SCALE SQ SCH ×4 (08:00→21:00)
[2017-04-25] MEDS: DOCUSATE SODIUM 50 MG/SENNA 8.6 MG TAB PO SCH ×2 (08:24→22:31)
[2017-04-25] MEDS: MEMANTINE HCL 10 MG TAB PO SCH (08:25)
[2017-04-25] MEDS: LISINOPRIL 10 MG TAB PO SCH (08:25)
[2017-04-25] MEDS: PANTOPRAZOLE SODIUM 40 MG VIAL IV PUSH SCH (08:25)
[2017-04-25] MEDS: METOPROLOL TARTRATE 25 MG TAB PO SCH ×2 (08:25→22:31)
[2017-04-25] MEDS: SODIUM CHLORIDE 0.9% FLUSH 10 ML FLUSH IV FLUSH SCH ×2 (08:25→22:30)
[2017-04-25] MEDS: FUROSEMIDE 20 MG TAB PO SCH (08:26)
--- NOTE | 2017-04-25 08:45 | PD.CARD.PN ---
Subjective Subjective Remarks Patient is feeling well and has no complaints. Objective Vital Signs / I&O Vital Signs Date Time Temp Pulse Resp B/P (MAP) Pulse Ox O2 Delivery O2 Flow Rate FiO2 04/25/17 08:37 92 Nasal Cannula 2.00 04/25/17 08:00 98.0 98 18 159/88 (111) 93 04/25/17 04:00 97.7 89 18 145/78 (100) 93 04/24/17 23:28 98.9 95 16 160/79 (106) 92 04/24/17 20:21 96 21 04/24/17 20:00 98.6 95 20 144/69 (94) 94 04/24/17 16:00 98.3 93 16 146/67 (93) 96 04/24/17 14:00 97.9 110 18 152/69 (96) 95 04/24/17 13:00 101 25 137/96 (110) 97 04/24/17 12:00 92 22 125/62 (83) 96 04/24/17 12:00 92 04/24/17 11:00 88 17 125/60 (81) 95 04/24/17 10:01 90 25 159/56 (90) 96 04/24/17 10:00 91 04/24/17 09:25 97 Nasal Cannula 3.00 04/24/17 09:01 99 23 190/79 (116) 97 I/O 04/24/17 04/24/17 04/24/17 04/25/17 04/25/17 04/25/17 07:00 15:00 23:00 07:00 15:00 23:00 Intake Total 240 ml 480 ml 120 ml Output Total 250 ml Balance 240 ml 230 ml 120 ml Intake Oral 240 ml 480 ml 120 ml IV Total 0 ml Output Urine Total 250 ml # Voids 4 2 2 # Bowel Movements 0 2 0 Physical Exam Irregularly irregular rhythm with HR of ~100bpm. Assessment and Plan Problem List: (1) Hyperlipemia ICD Codes: E78.5 - Hyperlipemia Status: Chronic (2) Hypertension, benign ICD Codes: I10 - Hypertension, benign Status: Chronic (3) Atrial fibrillation ICD Codes: I48.91 - Atrial fibrillation Status: Chronic Plan: HR and BP are still elevated. Increased metoprolol to 25mg bid and encouraged ambulation. Problem Qualifiers (1) Atrial fibrillation: Qualified Codes: I48.0 - Paroxysmal atrial fibrillation Zack Lopez MD Apr 25, 2017 08:45
--- NOTE | 2017-04-25 08:46 | PD.CARD.PN ---
Objective Vital Signs / I&O Vital Signs Date Time Temp Pulse Resp B/P (MAP) Pulse Ox O2 Delivery O2 Flow Rate FiO2 04/25/17 08:37 92 Nasal Cannula 2.00 04/25/17 08:00 98.0 98 18 159/88 (111) 93 04/25/17 04:00 97.7 89 18 145/78 (100) 93 04/24/17 23:28 98.9 95 16 160/79 (106) 92 04/24/17 20:21 96 21 04/24/17 20:00 98.6 95 20 144/69 (94) 94 04/24/17 16:00 98.3 93 16 146/67 (93) 96 04/24/17 14:00 97.9 110 18 152/69 (96) 95 04/24/17 13:00 101 25 137/96 (110) 97 04/24/17 12:00 92 22 125/62 (83) 96 04/24/17 12:00 92 04/24/17 11:00 88 17 125/60 (81) 95 04/24/17 10:01 90 25 159/56 (90) 96 04/24/17 10:00 91 04/24/17 09:25 97 Nasal Cannula 3.00 04/24/17 09:01 99 23 190/79 (116) 97 I/O 04/24/17 04/24/17 04/24/17 04/25/17 04/25/17 04/25/17 07:00 15:00 23:00 07:00 15:00 23:00 Intake Total 240 ml 480 ml 120 ml Output Total 250 ml Balance 240 ml 230 ml 120 ml Intake Oral 240 ml 480 ml 120 ml IV Total 0 ml Output Urine Total 250 ml # Voids 4 2 2 # Bowel Movements 0 2 0 Physical Exam Irregularly irregular rhythm with HR of ~100bpm. Assessment and Plan Problem List: (1) Hyperlipemia ICD Codes: E78.5 - Hyperlipemia Status: Chronic (2) Hypertension, benign ICD Codes: I10 - Hypertension, benign Status: Chronic (3) Atrial fibrillation ICD Codes: I48.91 - Atrial fibrillation Status: Chronic Assessment and Plan Addendum: Do not feel that patient will need pacemaker. OK to restart warfarin. Problem Qualifiers (1) Atrial fibrillation: Qualified Codes: I48.0 - Paroxysmal atrial fibrillation Zack Lopez MD Apr 25, 2017 08:46
[2017-04-25] MEDS ORDERED: METOPROLOL TARTRATE 25 MG TAB PO SCH (10:00)
[2017-04-25] MEDS ORDERED: METOPROLOL TARTRATE 25 MG TAB PO ONE (13:00)
--- NOTE | 2017-04-25 16:04 | HHI.PR ---
Subjective Remarks No new complaints. Pt admitted with symptomatic bradycardia requiring pressor support. Pt on metoprolol and cardizem outpt. Both were initially stopped. Pt developed afib with RVR. Pt resumed on metoprolol 25mg BID No new complaints today. Objective Vitals Vital Signs Date Time Temp Pulse Resp B/P (MAP) Pulse Ox O2 Delivery O2 Flow Rate FiO2 04/25/17 12:00 98.1 96 18 141/55 (83) 93 04/25/17 08:37 92 Nasal Cannula 2.00 04/25/17 08:26 93 04/25/17 08:00 Room Air 04/25/17 08:00 98.0 98 18 159/88 (111) 93 04/25/17 04:00 97.7 89 18 145/78 (100) 93 04/24/17 23:28 98.9 95 16 160/79 (106) 92 04/24/17 20:21 96 21 04/24/17 20:00 98.6 95 20 144/69 (94) 94 Result Diagram: 04/23/1744104/23/17 044 Imaging Last Impressions Chest X-Ray 04/23/17 0600 Signed Impressions: Service Date/Time: Sunday, April 23, 2017 05:06 - CONCLUSION: 1. Mild basilar opacity similar to April 22. Cardiomegaly. No pneumothorax. Lauro Krishna MD Objective Remarks GENERAL: This is a well-nourished, well-developed patient, in no apparent distress. CARDIOVASCULAR: Regular rate and rhythm without murmurs, gallops, or rubs. RESPIRATORY: Clear to auscultation. Breath sounds equal bilaterally. No wheezes , rales, or rhonchi. GASTROINTESTINAL: Abdomen soft, non-tender, nondistended. Normal active bowel sounds MUSCULOSKELETAL: Extremities without clubbing, cyanosis, or edema. NEURO: Alert & Oriented x4 to person, place, time, situation. Moves all ext x4 A/P Problem List: (1) Atrial fibrillation ICD Codes: I48.91 - Atrial fibrillation Status: Chronic Plan: Pt admitted with symptomatic bradycardia requiring pressor support. Pt on metoprolol and cardizem outpt. Both were initially stopped. Pt developed afib with RVR. Pt resumed on metoprolol 25mg BID Cardiology does NOT feel that pt will require PPM observe overnight again on telemetry (2) COPD (chronic obstructive pulmonary disease) ICD Codes: J44.9 - COPD (chronic obstructive pulmonary disease) Status: Chronic Plan: duonebs (3) Coagulopathy ICD Codes: D68.9 - Coagulopathy Status: Chronic (4) Hyperlipemia ICD Codes: E78.5 - Hyperlipemia Status: Chronic (5) Hypertension, benign ICD Codes: I10 - Hypertension, benign Status: Chronic (6) Diabetes mellitus type 2, diet-controlled ICD Codes: E11.9 - Diabetes mellitus type 2, diet-controlled Status: Acute (7) Hyperkalemia ICD Codes: E87.5 - Hyperkalemia Status: Acute (8) Symptomatic bradycardia ICD Codes: R00.1 - Bradycardia, unspecified Status: Acute (9) Type 2 diabetes mellitus ICD Codes: E11.9 - Type 2 diabetes mellitus without complications Status: Chronic Problem Qualifiers (1) Atrial fibrillation: Qualified Codes: I48.0 - Paroxysmal atrial fibrillation Lul Hood DO Apr 25, 2017 16:04
[2017-04-25] MEDS: MIRTAZAPINE 15 MG TAB PO SCH (22:30)
[2017-04-25] MEDS: OXYBUTYNIN CHLORIDE 5 MG TAB PO SCH (22:31)
[2017-04-25] MEDS: ATORVASTATIN 20 MG TAB PO SCH (22:31)
[2017-04-26] VITALS: BP 144/69; PULSE 85; RESP 20; TEMP 98.3; O2SAT 95
[2017-04-26 04:00] VITALS: BP 130/64; PULSE 90; RESP 18; TEMP 98; O2SAT 94
[2017-04-26] MEDS: CHLORHEXIDINE GLUCONATE 2 % 1 PACK (2 CLOTHS) TOP SCH (04:00)
[2017-04-26] MEDS: RESP: ALBUTEROL 2.5 MG/IPRATROPIUM 0.5 MG NEB (SCH) NEB (04:33)
[2017-04-26 04:36] VITALS: O2SAT 94
[2017-04-26] MEDS: INSULIN ASPART SUPPLEMENTAL SCALE SQ SCH ×2 (08:00→12:00)
[2017-04-26 08:02] VITALS: BP 164/70; PULSE 89; RESP 18; TEMP 97.5; O2SAT 95
[2017-04-26] MEDS: FUROSEMIDE 20 MG TAB PO SCH (08:39)
[2017-04-26] MEDS: PANTOPRAZOLE SODIUM 40 MG VIAL IV PUSH SCH (08:39)
[2017-04-26] MEDS: METOPROLOL TARTRATE 25 MG TAB PO SCH (08:39)
[2017-04-26] MEDS: SODIUM CHLORIDE 0.9% FLUSH 10 ML FLUSH IV FLUSH SCH (08:39)
[2017-04-26] MEDS: MEMANTINE HCL 10 MG TAB PO SCH (08:40)
[2017-04-26] MEDS: DOCUSATE SODIUM 50 MG/SENNA 8.6 MG TAB PO SCH (08:40)
[2017-04-26] MEDS: LISINOPRIL 10 MG TAB PO SCH (08:41)
[2017-04-26 10:57] VITALS: O2SAT 94
--- NOTE | 2017-04-26 11:57 | PD.CARD.PN ---
Subjective Subjective Remarks Hospital records reviewed and Dr. Lopez spoken with yesterday. The patient denies chest pain, shortness of breath, palpitations, GI symptoms or bleeding. Telemetry shows controlled atrial fibrillation today. Objective Medications Reviewed Vital Signs / I&O Vital Signs Date Time Temp Pulse Resp B/P (MAP) Pulse Ox O2 Delivery O2 Flow Rate FiO2 04/26/17 10:57 94 21 04/26/17 08:02 97.5 89 18 164/70 (101) 95 04/26/17 07:15 94 Room Air 04/26/17 04:36 94 Nasal Cannula 2.00 04/26/17 04:00 98.0 90 18 130/64 (86) 94 04/26/17 00:00 98.3 85 20 144/69 (94) 95 04/25/17 20:00 Room Air 04/25/17 20:00 98.4 100 18 135/75 (95) 96 04/25/17 16:00 98.4 96 18 138/65 (89) 94 04/25/17 16:00 Room Air 04/25/17 12:00 Room Air 04/25/17 12:00 98.1 96 18 141/55 (83) 93 I/O 04/25/17 04/25/17 04/25/17 04/26/17 04/26/17 04/26/17 07:00 15:00 23:00 07:00 15:00 23:00 Intake Total 120 ml 720 ml 480 ml Balance 120 ml 720 ml 480 ml Intake Oral 120 ml 720 ml 480 ml # Voids 2 3 2 # Bowel Movements 0 1 Physical Exam GENERAL: Well-nourished, well-developed patient in no apparent distress. SKIN: Warm and dry. NECK: JVD normal - less than or equal to 5 cm H20. CARDIOVASCULAR: Irregular rate and rhythm without murmurs, gallops, or rubs. RESPIRATORY: Normal breath sounds - equal bilaterally. No accessory muscle use. No wheezes, rales or rubs. PERIPHERY: No cyanosis, or edema. Laboratory Reviewed Imaging Reviewed Assessment and Plan Assessment and Plan Problems: Symptomatic bradycardia Atrial fibrillation Hypertension Diabetes Hyperlipidemia Recommendations: Continue beta blockers alone. Her heart rate is controlled this morning but certainly this can be increased as needed. Hold calcium channel blockers. Risk factor modification per primary service. I'm not sure why she is off of her anticoagulation at this point in time but it ideally should be reinitiated given her risks for CVA and embolus from atrial fibrillation. We will sign off and be available if needed. Shashi Galvan MD Apr 26, 2017 11:56
[2017-04-26 12:02] VITALS: BP 129/75; PULSE 88; RESP 18; TEMP 98.2; O2SAT 94
[2017-04-26] MEDS ORDERED: METO25TA3 PO (12:19)
[2017-04-26] MEDS ORDERED: LISI10TA3 PO (12:19)
--- NOTE | 2017-04-26 12:30 | HHI.DS ---
Discharge Summary Admission Date Apr 22, 2017 at 00:04 Discharge Date: Apr 26, 2017 Admitting Diagnosis symptomatic bradycardia, hyperkalemia (1) Atrial fibrillation ICD Codes: I48.91 - Atrial fibrillation Status: Chronic (2) COPD (chronic obstructive pulmonary disease) ICD Codes: J44.9 - COPD (chronic obstructive pulmonary disease) Status: Chronic (3) Coagulopathy ICD Codes: D68.9 - Coagulopathy Status: Chronic (4) Hyperlipemia ICD Codes: E78.5 - Hyperlipemia Status: Chronic (5) Hypertension, benign ICD Codes: I10 - Hypertension, benign Status: Chronic (6) Diabetes mellitus type 2, diet-controlled ICD Codes: E11.9 - Diabetes mellitus type 2, diet-controlled Status: Acute (7) Hyperkalemia ICD Codes: E87.5 - Hyperkalemia Status: Acute (8) Symptomatic bradycardia ICD Codes: R00.1 - Bradycardia, unspecified Status: Acute (9) Type 2 diabetes mellitus ICD Codes: E11.9 - Type 2 diabetes mellitus without complications Status: Chronic Consultants Cardiology Dr. Lopez Incident Response Coordinator Dr. Scherer Procedures none CBC/BMP: 04/23/17 0442 04/23/17 0442 Imaging Last Impressions Chest X-Ray 04/23/17 0600 Signed Impressions: Service Date/Time: Sunday, April 23, 2017 05:06 - CONCLUSION: 1. Mild basilar opacity similar to April 22. Cardiomegaly. No pneumothorax. Lauro Krishna MD PE at Discharge GENERAL: This is a well-nourished, well-developed patient, in no apparent distress. CARDIOVASCULAR: Regular rate and rhythm without murmurs, gallops, or rubs. RESPIRATORY: Clear to auscultation. Breath sounds equal bilaterally. No wheezes , rales, or rhonchi. GASTROINTESTINAL: Abdomen soft, non-tender, nondistended. Normal active bowel sounds MUSCULOSKELETAL: Extremities without clubbing, cyanosis, or edema. NEURO: Alert & Oriented x4 to person, place, time, situation. Moves all ext x4 Hospital Course Symptomatic bradycardia Pt admitted with symptomatic bradycardia. On arrival, was found that the patient had a heart rate of 20 and a blood pressure of 60/30 requiring transcutaneous pacing, ICU and pressor support. Pt on metoprolol and Cardizem outpt. Both were initially stopped. then patient developed a Fib RVR metoprolol 25 mg BID Atrial fibrillation see above COPD (chronic obstructive pulmonary disease) duonebs Coagulopathy Chronic Coumadin initially held with the possibility that patient may require a pacemaker Cardiology consult and felt that patient will not need a pacemaker placed Resume Coumadin at DC Hyperlipemia Chronic continue home medications Hypertension, benign chronic see above Diabetes mellitus type 2, diet-controlled SSI with in hospital will resume metformin at time of DC Hyperkalemia Resolved Pt Condition on Discharge: Stable Discharge Disposition: Discharge Home Discharge Instructions DIET: Follow Instructions for: As Tolerated, No Restrictions Activities you can perform: Regular-No Restrictions Follow up Referrals: Cardiology - [address] Lopez PCP Follow-up - [address] Pedroza New Medications: Lisinopril (Lisinopril) 10 Mg Tab 10 MG PO DAILY for blood pressure, #30 TAB 0 Refills Metoprolol Tartrate (Metoprolol Tartrate) 25 Mg Tab 25 MG PO Q12HR for blood pressure/heart rate, #60 TAB 0 Refills Continued Medications: Albuterol 18 GM Inh (Ventolin Hfa 18 GM Inh) 90 Mcg/Act Aer 2 PUFF INH Q6H PRN for SHORTNESS OF BREATH, #1 INHALER 0 Refills Atorvastatin (Atorvastatin) 20 Mg Tab 20 MG PO HS for Cholesterol Management, #30 TAB 0 Refills Cholecalciferol (Vitamin D) 2,000 Unit Tab Furosemide (Furosemide) 20 Mg Tab 20 MG PO DAILY, #30 TAB 0 Refills Memantine (Memantine) 10 Mg Tab 10 MG PO DAILY for Alzheimer's Dementia, TAB 0 Refills Metformin (Metformin) 500 Mg Tab 500 MG PO DAILY for Blood Sugar Management, #30 TAB 0 Refills With a meal Mirtazapine (Mirtazapine) 15 Mg Tab 15 MG PO HS for Depression Control, #30 TAB 0 Refills Oxybutynin (Ditropan) 5 Mg Tab 5 MG PO HS for Urinary Symptom Managemen, #60 TAB 0 Refills Potassium Chloride ER (K-Tab) 10 Meq Tab 10 MEQ PO DAILY for Electrolyte Replacement, #30 TAB 0 Refills Umeclidinium-Vilanterol Inh (Anoro Ellipta Inh) 62.5-25 Mcg/Act Aero 1 PUFF INH DAILY for COPD, #1 INHALER 0 Refills Warfarin (Warfarin) 5 Mg Tab 5 MG PO Sun, Mon, Wed, Fri, #30 TAB 0 Refills Warfarin (Warfarin) 2.5 Mg Tab 2.5 MG PO , for Blood Clot Prevention, #30 TAB 0 Refills Discontinued Medications: Diltiazem ER 24 HR (Diltiazem ER 24 HR) 180 Mg Michael Unknown Dose PO DAILY, #30 TAB 0 Refills Metoprolol Tartrate (Metoprolol Tartrate) 50 Mg Tab 50 MG PO BID, #60 TAB 0 Refills Additional Information Patient examined. Assessment and plan formulated with Emelia Kidd PA-C. I agree with the above. Emelia Kidd Apr 26, 2017 12:30 Lul Hood DO Apr 28, 2017 15:24
[2017-04-26] MEDS ORDERED: COUM5TAB PO (14:32)
--- NOTE | 2017-04-27 16:37 | HHI.DCPOC ---
Discharge Care Plan Diagnosis: (1) Symptomatic bradycardia (2) Atrial fibrillation Goals to Promote Your Health * To prevent worsening of your condition and complications * To maintain your health at the optimal level Directions to Meet Your Goals Take your medications as prescribed Follow your dietary instruction Follow activity as directed Keep your appointments as scheduled Take your immunizations and boosters as scheduled If your symptoms worsen call your PCP, if no PCP go to Urgent Care Center or Emergency Room Smoking is Dangerous to Your Health. Avoid second hand smoke Call the 24-hour hour crisis hotline for domestic abuse at [facility] Kidd Apr 27, 2017 16:37 Lul Hood DO Apr 28, 2017 15:24
== END 2017-04-26 14:52 | disposition home or self-care (01) | DRG 308 ==
LOC: NEPC 22:24 → NEDA 04-22 00:04 → HIMN 04-22 02:21 → N04B 04-24 13:54
PROVIDERS: ADMIT Hospitalist; ATTEND Hospitalist
DX: R00.1 Bradycardia, unspecified (principal); R57.0 Cardiogenic shock; N17.9 Acute kidney failure, unspecified; I50.32 Chronic diastolic (congestive) heart failure; E87.1 Hypo-osmolality and hyponatremia; I11.0 Hypertensive heart disease with heart failure; E83.42 Hypomagnesemia; I48.0 Paroxysmal atrial fibrillation; E11.65 Type 2 diabetes mellitus with hyperglycemia; F03.90 Unspecified dementia, unspecified severity, without behavioral disturbance, psychotic disturbance, mood disturbance, and anxiety; E87.5 Hyperkalemia; J44.9 Chronic obstructive pulmonary disease, unspecified; E78.5 Hyperlipidemia, unspecified; D64.9 Anemia, unspecified; Z87.891 Personal history of nicotine dependence; Z79.01 Long term (current) use of anticoagulants; Z79.84 Long term (current) use of oral hypoglycemic drugs
CPT/HCPCS: 71010; 80048; 80053; 82533; 82550; 82948; 83735; 84100; 84132; 84443; 84484; 85025; 85610; 85730; 87641; 93306; 94640; 94664; 96374; C9113; J0610; J1265; J1815; J2270; J3475; J7613